=== PATIENT | female | born 1990 | race Caucasian/White ===

== ENCOUNTER 2023-02-04 09:02 | Inpatient (IN) | payer OTHER, SELFPAY ==
[2023-02-04] VITALS (33 sets, daily range): BP systolic 121–174; BP diastolic 68–97; PULSE 69–90; RESP 15; TEMP 36.8–37.3; O2SAT 98; BMI 41.2
[2023-02-04] MEDS: 0.9% Normal Saline Single 100 ML IV.SOLN. INTRA-UTER (09:50)
[2023-02-04 11:18] LABS: Red Blood Cells-Urine 0 SEEN /hpf (0-5)
[2023-02-04 11:20] LABS: Mucous, Urine 0 SEEN /hpf (<or=2+)
[2023-02-04 11:23] LABS: Absolute Lymphocyte Count 2.17 X10^3/uL (0.83-4.51); Absolute Neutrophil Count 8.5 X10^3/uL (2.0-7.7); Basophil# 0.03 X10^3/uL; Basophil% 0.3 % (0-1); Eosinophil# 0.08 X10^3/uL; Eosinophils% 0.7 % (0-5); Hematocrit 36.6 % (37-47); Lymphocyte # 2.17 X10^3/ul (0.83-4.51); Lymphocyte % 18.2 % (19-41); Mean Corp Hgb Conc 32.8 g/dL (32-36); Mean Corpuscular Hgb 29.2 pg (27.0-32.0); Mean Corpuscular Volume 89.1 fL (81-99); Mean Platelet Vol. 11.2 fl (6.2-12.0); Monocyte# 1.02 X10^3/uL; Monocyte% 8.5 % (0-10); NRBC Flagged by Analyzer 0 % (0-5); Neutrophil # 8.54 X10^3/uL (2.7-7.7); Neutrophil % 71.5 % (47-70); Platelet Count 283 K/mm3 (150-450); RBC Distribution Width CV 14.6 % (11.6-14.6); RBC Distribution Width SD 46.1 fl (35.1-43.9); Red Blood Count 4.11 M/mm3 (4.2-5.4); White Blood Count 11.9 K/mm3 (4.4-11.0)
[2023-02-04 11:32] LABS: Color, Urine Straw (Yellow); Glucose, Dipstick Normal (Normal); Ketone-Dipstick Negative (Negative); Leukocyte Esterase-Dipstick 500 /ul (Negative); Nitrite-Dipstick Negative (Negative); Occult Blood-Urine Negative /ul (Negative); Protein-Dipstick 15 mg/dl (Negative); Specific Gravity, Urine 1.005 (1.002-1.030); Urine Bilirubin Dipstick Negative (Negative); Urine Clarity Clear (Clear); Urine Urobilinogen Normal (Normal)
[2023-02-04] MEDS: 0.9% Saline Lock 10 ML Syringe IV ×2 (11:39→18:36)
[2023-02-04] MEDS: miSOPROStol 25 MCG TABLET PO ×2 (11:39→15:37)
[2023-02-04 11:40] LABS: Bacteria 2+ /hpf (None Seen); Squamous Epithelial Cells - UA 0-5 SEEN /hpf (5-10); White Blood Cells 10-25 SEEN /hpf (0-5)
[2023-02-04 11:45] LABS: Bedside Glucose 78 mg/dL (74-106)
[2023-02-04 12:24] LABS: HIV - WCH Non-Reactive (Nonreactive); Rubella IgG Reactive (Nonreactive); Syphilis Antibodies Non-reactive
[2023-02-04 12:25] LABS: Bedside Glucose 72 mg/dL (74-106)
[2023-02-04 12:30] LABS: AST(SGOT) 23 U/L (15-37); Alanine Aminotransfer ALT/SGPT 27 U/L (13-56); Creatinine, Serum 0.69 mg/dL (0.55-1.02); EST Glomerular Filtration Rate 105 mL/min (>60); Est Glom Filt Rate - Afr Amer 128 mL/min (>60); Estimated Creatinine Clearance 102.01 ml/min; Uric Acid 8.2 mg/dL (2.6-6.0)
[2023-02-04 12:32] LABS: Hepatitis B Surface Antigen Non-Reactive (Nonreactive); Hepatitis C Antibody Non-Reactive (Nonreactive)
[2023-02-04 12:40] LABS: Protein, Urine (Random) 14.2 mg/dL (<11.9); Protein:Creat Ratio 335 mg/g CRE (0-200)
[2023-02-04 12:43] LABS: Amphetamine Urine VISTA NEGATIVE (<1000 ng/mL); Barbiturate Urine VISTA NEGATIVE (< 200 ng/mL); Benzodiazepine Urine VISTA NEGATIVE (< 200 ng/mL); Cocaine Urine VISTA NEGATIVE (< 300 ng/mL); Ecstacy Urine VISTA NEGATIVE (< 500 ng/mL); Methadone Urine VISTA NEGATIVE (< 300 ng/mL); PCP Urine VISTA NEGATIVE (< 25 ng/mL); THC Urine VISTA NEGATIVE (< 50 ng/mL); Vista UDS pH Range 7
[2023-02-04 13:10] LABS: Group B Strep DNA By PCR Negative (Negative); Internal Control PASS; Probe Check PASS; Specimen Processing Control PASS
[2023-02-04 16:06] LABS: Bedside Glucose 102 mg/dL (74-106)
[2023-02-04 16:19] LABS: Chlamydia Trachomatis by PCR Negative (Negative); Neisserai gonorrhoeae by PCR Negative (Negative); Probe Check PASS; Sample Adequacy Control PASS; Specimen Processing Control PASS
--- NOTE | 2023-02-04 18:22 | PCM.HP.OB ---
HPI - General General Date of Admission: 02/04/23 HPI Narrative NARAYAN BELL, is a 32 F who presents at 37w3d by LMP . Presented to office today for first appointment, no care. Patient had a fear of getting her blood drawn so never came for care. Was taking BP at home and it was elevated so she came in. Denies REYNOLDS, visual changes, chest pain or SOB. . At visit BP in severe range and sent for induction of labor. BPP 8/8, KAREN normal. PFSH PFSH Medical History (Updated 02/04/23 @ 18:26 by Milly Stein CNM) macrosomia Home Medications [id number] 1 mg tablet 1 tab PO DAILY 02/04/23 [History Last Taken 02/04/23 06:00] Allergy/AdvReac Type Severity Reaction Status Date / Time No Known Allergies Allergy Verified 02/04/23 09:57 Surgical History (Updated 02/04/23 @ 10:55 by Nena Jalloh) History of surgery Social History Smoking Status: Never smoker History Elective abortions Hx Para 0 Spontaneous abortions Hx # Term Pregnancies Ectopic pregnancies Hx # Pregnancies Multiple births # of living children ROS Constitutional Constitutional: Reports systems reviewed and no addt'l complaints, except as documented; Denies headache(s) Eyes Eyes: Denies acute decrease in peripheral vision, blurry vision or change in vision ENT HEENT: Reports systems reviewed and no addt'l complaints, except as documented Cardiovascular Cardiovascular: Denies chest pain or dizziness Respiratory/Chest Respiratory/Chest: Denies cough, dyspnea, dyspnea on exertion, shortness of breath at rest or shortness of breath with exertion Gastrointestinal Gastrointestinal: Denies abdominal pain, diarrhea, nausea or vomiting Genitourinary Genitourinary: Denies abdominal discomfort Musculoskeletal Musculoskeletal: Denies limited range of motion Integumentary Integumentary: Reports systems reviewed and no addt'l complaints, except as documented Neurologic Neurologic: Reports systems reviewed and no addt'l complaints, except as documented Psychiatric Psychiatric: Reports systems reviewed and no addt'l complaints, except as documented Endocrine Endocrinology: Reports systems reviewed and no addt'l complaints, except as documented Hematologic/Lymphatic Hematologic/Lymphatic: Reports systems reviewed and no addt'l complaints, except as documented Allergic/Immunologic Allergic/Immunologic: Reports systems reviewed and no addt'l complaints, except as documented Vital Signs Vital Signs Vital Signs: 02/04/23 09:28 02/04/23 09:28 02/04/23 09:44 Temperature Temperature Source Pulse Rate 75 Blood Pressure 143/84 H 174/97 H BP Systolic 143 174 BP Diastolic 84 97 02/04/23 09:44 02/04/23 10:14 02/04/23 10:14 Temperature Temperature Source Pulse Rate 90 72 Blood Pressure 128/77 H BP Systolic 128 BP Diastolic 77 02/04/23 10:28 02/04/23 10:28 02/04/23 11:51 Temperature Temperature Source Pulse Rate 80 Blood Pressure 151/84 H 135/79 H BP Systolic 151 135 BP Diastolic 84 79 02/04/23 11:51 02/04/23 11:49 02/04/23 11:49 Temperature 98.6 F Temperature Source Temporal Pulse Rate 75 Blood Pressure BP Systolic BP Diastolic 02/04/23 12:13 02/04/23 12:13 02/04/23 12:28 Temperature Temperature Source Pulse Rate 81 Blood Pressure 127/75 H 128/78 H BP Systolic 127 128 BP Diastolic 75 78 02/04/23 12:28 02/04/23 12:43 02/04/23 12:43 Temperature Temperature Source Pulse Rate 78 78 Blood Pressure 136/79 H BP Systolic 136 BP Diastolic 79 02/04/23 13:53 02/04/23 13:53 02/04/23 15:31 Temperature Temperature Source Pulse Rate 75 Blood Pressure 134/79 H 132/78 H BP Systolic 134 132 BP Diastolic 79 78 02/04/23 15:31 02/04/23 15:34 02/04/23 15:34 Temperature 98.2 F Temperature Source Temporal Pulse Rate 73 Blood Pressure BP Systolic BP Diastolic Weight Weight: 240 lb 4.862 oz Body Mass Index (BMI) 41.2 Physical Exam Const alert and oriented x3 General Appearance: cooperative Orientation / Consciousness: awake, oriented to person, oriented to place and oriented to time Exam Limitations: no limitations HEENT normocephalic Head and Scalp: normal to inspection, normocephalic and atraumatic Face and Sinus: normal facial exam Eyes General Eye: normal appearance of both eyes Neck full ROM Chest Chest: symmetrical chest wall rise Resp normal respiratory effort and normal air movement Auscultation: clear to auscultation bilaterally Cardio regular rate, regular rhythm, S1 normal heart sound, S2 normal heart sound, no murmurs, no rub, no gallops and no clicks GI normal to inspection, nondistended, normoactive bowel sounds and non-tender appearance of the vagina normal Bladder / Kidney Exam: no CVA tenderness Manual OB Exam: estimated gestational size large, presentation cephalic, dilated 1cm, effaced 50%, station -3 and other herrera catheter placed intracervically without difficult over stylus. 30 ml NS instilled. Patient tolerated well. Back/Spine normal ROM Extremity normal to inspection and full ROM Skin no rashes or lesions noted Neuro oriented x3, CN's II-XII intact bilaterally and moves all extremities Sensorium / Orientation: awake, alert and oriented to person Motor Exam: clonus absent Deep Tendon Reflexes: Rt Patellar (L4): 2+ and Lt Patellar (L4): 2+ Labs Labs Labs: Blood Type B POSITIVE Antibody Screen NEGATIVE Hct 36.6 % (37-47) L Hgb 12.0 g/dL (12.0-15.0) Syphilis Total Ab Non-reactive Rubella IgG Antibody Reactive (Nonreactive) Hep Bs Antigen Non-Reactive (Nonreactive) HIV 1&2 Antibody Non-Reactive (Nonreactive) Group B Strep DNA Negative (Negative) Assessment & Plan (1) Encounter for induction of labor: (2) Preeclampsia: (3) Suspected macroscopic fetus: COMMENT: 9lb 6oz (4) No care in current : (5) Nulliparity: (6) 37 weeks gestation of : PLAN: Plan 1) Admit to labor and delivery 2) Routine labs and preeclampsia labs 3) BP not severe range upon admission, Preeclampsia without severe features. 4) Reviewed options for IOL and patient consents to herrera catheter and cytotec PO then pitocin. 5) Continuous EFM 6) Pain management upon request 7) collaborative physician and notified of patient status 8) GBS ordered
[2023-02-04] MEDS: Lactated Ringers 1,000 ML 200 ML IV (18:36)
[2023-02-04] MEDS: Oxytocin 15 Units/NS 250ml 15 UNITS/250 ML IV.SOLN 2 UNITS IV (19:04)
[2023-02-04] MEDS: Labetalol 100 MG Tablet PO (20:39)
[2023-02-04] MEDS: Magnesium Sulfate 4gm/100mL 4 GM/100 ML IV.SOLN. IV (20:40)
[2023-02-04] MEDS: Magnesium Sulfate 4gm/100mL 2 GM/50 ML IV.SOLN. IV (21:01)
[2023-02-04] MEDS: Magnesium Sulfate 20 GM/500 ML BAG IV (21:12)
[2023-02-05] VITALS (260 sets, daily range): BP systolic 84–147; BP diastolic 50–85; PULSE 56–107; RESP 13–24; TEMP 36.4–37.3; O2SAT 80–98
[2023-02-05] MEDS: LACTATED RINGERS 500 ML 999 ML IV ×2 (00:09→01:15)
[2023-02-05] MEDS: fentaNYL-bupivacaine (epidural) 100 ML BAG EPIDURAL ×4 (01:09→14:26)
[2023-02-05] MEDS: Magnesium Sulfate 20 GM/500 ML BAG IV ×2 (07:02→17:07)
[2023-02-05] MEDS: Labetalol 100 MG Tablet PO ×2 (10:22→22:38)
[2023-02-05] MEDS: Oxytocin 15 Units/NS 250ml 15 UNITS/250 ML IV.SOLN 16 UNITS IV (14:25)
[2023-02-05] MEDS: Sodium Citrate/Citric Acid 30 ML UDC PO (18:09)
[2023-02-05] MEDS: Acetaminophen 500 MG Tablet PO (18:11)
[2023-02-05] MEDS: Cefazolin 2 GM in 0.9% Normal Saline 100 ML IV (18:22)
--- NOTE | 2023-02-05 19:09 | OP.PCM_ITS ---
Assessment & Plan (1) 37 weeks gestation of : (2) Nulliparity: (3) Preeclampsia: (4) Arrest of descent, delivered, current hospitalization: Maternal Data Information Final ANTONINO: 02/12/23 Gestational age: 37 4/7 Details Operative Information Date of Procedure: 02/05/23 Pre-Operative Diagnosis: arrest of descent Post-Operative Diagnosis: same Classification: REGINE Procedure Type: low transverse player development executive #1: Modesta Diaz Type of Anesthesia: Epidural Anesthesiologist: Jose Burciaga Special Medications: duramorph Antibiotic Given: Ancef 2 grams IV x1 and Zithromax 500 mg/5 mL X1 Drain: Gatica to straight drain Estimated Blood Loss: 800 Fluids Replaced: 750 Procedure Start Time: 18:31 Procedure Stop Time: 19:00 Time of Delivery: 18:35 Findings Description of Procedure: I evaluated the patient and she was pushing adequately. Pelvis clinically adequate. Estimated weight was less than 4500 clams clinically and by ultrasound. Gatica was in place. Epidural was in place and working. Position was [place]. She was pushing to plus 2 out of 5 station. She been pushing for 3 hours and was getting tired. I discussed with the patient trial of vacuum versus section versus continued pushing. She elected for trial of vacuum. Her partner was present for the discussion. The vacuum was placed on the flexion point and suction created 550 mmHg. I pulled with 2 contractions with 1 pop-off. At that point the head restituted back to plus 2 out of 5 station. I discussed with the patient that we have not made significant progress and trial of vacuum was completed. Patient stated understanding and agreed to proceed with delivery. The patient was taken to the operating room. She was prepped and draped in the dorsal supine position with a leftward tilt. A Pfannenstiel skin incision was made approximately 2 cm above the symphysis pubis and carried through to underlying layer fascia with the scalpel. The fascia was incised incised in the midline and extended laterally with the Torres scissors. The fascia was dissected off the rectus muscles with blunt and sharp dissection. The rectus muscles were in the midline and the peritoneum was entered bluntly. The peritoneal incision was stretched and the bladder blade was placed. The uterine incision was made in a low transverse fashion with the scalpel and extended superiorly and inferiorly with blunt dissection. The amniotic membranes were ruptured bluntly and clear amniotic fluid returned. The 's head was brought to the incision in the flexed position and delivered without difficulty. The remainder of the was delivered with gentle traction and fundal pressure in the standard fashion. The mouth and nares were bulb suctio beth. The cord was clamped and cut as the infant was stimulated. Cord clamping was delayed. The was handed off to the waiting nursing staff. The placenta was delivered with fundal massage and gentle traction in the standard fashion. The uterus was exteriorized and cleared of all clots and debris. . The uterine incision was closed with #1 Vicryl in a running locked fashion. A second layer of the same suture was used in an imbricating fashion. The incision was examined and was found to be hemostatic. The uterus was placed back into the peritoneal cavity and hemostasis was again confirmed. The rectus muscles were examined and any bleeding was Bovie cauterized. The parietal peritoneum and rectus muscles were closed en bloc with an 0 Vicryl running suture. Some Leticia was placed over this layer. The rectus fascia was examined and any bleeding was Bovie cauterized and the rectus fascia was closed with #1 PDS suture in a running standard fashion. The subcutaneous tissue was examining and any bleeding was Bovie cauterized. The subcutaneous tissue was reapproximated with 3-0 Vicryl suture. The skin was closed in a subcuticular fashion . I performed the entire procedure with assistance. All sponge, lap, and needle counts were correct. The patient was taken to her room for recovery in a stable condition. Presentation: Positive for [place] Amniotic Membrane Rupture Type: Artificial Amniotic Fluid Description: Clear Placental Delivery Description: Expressed Placenta Disposition: [facility] Cord Vessel Description: 3 Vessels Cord Entanglement: None Cord Gases: ABG and VBG Infant A Gender: Female (1 minute): 8 (5 minute): 9 Delayed Cord Clamping: No Complications Complications: none
[2023-02-05] MEDS: Oxytocin 15 Units/NS 250ml 15 UNITS/250 ML IV.SOLN 83 UNITS IV (19:40)
[2023-02-05] MEDS: Lactated Ringers 1,000 ML 25 ML IV (19:48)
[2023-02-05] MEDS: Ketorolac 30 MG/ML Syringe IV (20:27)
--- NOTE | 2023-02-05 23:52 | NURSING ---
Addendum entered by Marcie Goncalves 02/05/23 23:54: RN reviewed orders, pt taken off oxygen at this time as SpO2 level 92%. Original Note: pt started on 2L O2 via nasal canula at this time
[2023-02-06] VITALS (144 sets, daily range): BP systolic 96–140; BP diastolic 51–75; PULSE 64–96; RESP 16–24; TEMP 36.4–37; O2SAT 84–100
[2023-02-06] MEDS: Acetaminophen 500 MG Tablet 1000 MG PO ×4 (00:55→17:47)
[2023-02-06] MEDS: Magnesium Sulfate 20 GM/500 ML BAG IV ×2 (02:45→12:41)
[2023-02-06] MEDS: Ketorolac 30 MG/ML Syringe IV ×3 (02:47→15:02)
[2023-02-06 05:13] LABS: Hematocrit 28.7 % (37-47); Hemoglobin 9.2 g/dL (12.0-15.0); Mean Corp Hgb Conc 32.1 g/dL (32-36); Mean Corpuscular Hgb 29.3 pg (27.0-32.0); Mean Corpuscular Volume 91.4 fL (81-99); Mean Platelet Vol. 10.8 fl (6.2-12.0); Platelet Count 225 K/mm3 (150-450); RBC Distribution Width CV 15.1 % (11.6-14.6); RBC Distribution Width SD 49.6 fl (35.1-43.9); Red Blood Count 3.14 M/mm3 (4.2-5.4); White Blood Count 19.4 K/mm3 (4.4-11.0)
--- NOTE | 2023-02-06 05:15 | NURSING ---
report given to Kim Salinas RN who is assuming care of pt at this time
[2023-02-06] MEDS: Enoxaparin 40 MG/0.4 ML Syringe SC ×2 (05:58→17:45)
[2023-02-06] MEDS: Labetalol 100 MG Tablet PO ×2 (10:27→22:08)
[2023-02-06] MEDS: Senna/Docusate Sodium 1 Tablet PO (10:28)
--- NOTE | 2023-02-06 10:30 | NURSING ---
at the bedside and pt aware she will stay til Sat. Christopher states the mag can come off at 24 hours.
--- NOTE | 2023-02-06 10:32 | PCM.PN.OB ---
Subjective Subjective Pain well controlled, average lochia. Had one episode of emesis first time up but no N/V after. Ate regular diet. No flatus. Denies REYNOLDS or visual changes. Objective Data Objective Data Vital Signs: Vital Signs Temp Pulse Resp BP Pulse Ox O2 Del Method O2 Flow Rate 97.7 F L 83 16 121/63 H 94 Room Air 2 02/06/23 10:00 02/06/23 10:11 02/06/23 10:00 02/06/23 10:04 02/06/23 10:11 02/06/23 10:00 02/06/23 02:49 Oxygen Flow Rate (L/min) 2 Oxygen Delivery Method Room Air Weight: 109 kg Body Mass Index (BMI) 41.2 Intake & Output: Intake and Output for Last 24 Hours 02/04/23 02/05/23 02/06/23 23:59 23:59 23:59 Intake Total 726.66 / 726.66 3584.89 / 3584.89 631.67 / 631.67 Output Total 300 / 300 2991 / 2991 703 / 703 Balance 426.66 / 426.66 593.89 / 593.89 -71.33 / -71.33 Lab / Micro Data Result Diagrams: 02/06/23 04:59 02/04/23 10:50 Labs: Laboratory Results - last 24 hr 02/06/23 04:59: WBC 19.4 H, RBC 3.14 L, Hgb 9.2 L, Hct 28.7 L, MCV 91.4, MCH 29.3, MCHC 32.1, RDW Std Deviation 49.6 H, RDW Coeff of Iftikhar 15.1 H, Plt Count 225, MPV 10.8 Micro: Microbiology 02/04/23 Unknown Genital vaginal Group B Streptococcus Culture - Preliminary ABG Data ABG results: ABG 02/05/23 18:49 Specimen Type Cancelled Sample Site Cancelled O2 % Cancelled Cord ABG pH Cancelled Cord ABG pCO2 Cancelled Cord ABG pO2 Cancelled Cord ABG HCO3 Cancelled Cord ABG Total CO2 Cancelled Cord ABG Base Excess Cancelled Cord ABG O2 Sat Cancelled Respiration Rate Cancelled O2 Delivery Device Cancelled Liter Flow Cancelled Minute Volume Cancelled Tidal Volume Cancelled Mean Airway Pressure Cancelled POC PEEP Cancelled Peak Inspir Pressure Cancelled POC Pressure Suppt Cancelled Pressure High Cancelled Pressure Low Cancelled Time High Cancelled Time Low Cancelled EPAP Cancelled IPAP Cancelled Crit Call To/Read Back Cancelled Blood Gas Notified Whom Cancelled Blood Gas Notified Time Cancelled Clinical Comments Cancelled Physical Exam Narrative 2+ LE edema, 1+ DTRs, one beat of clonus Const alert General Appearance: cooperative GI GI Narrative: soft, moderate distention, fundus firm, appropriately tender. Abdominal bandage clean dry and intact Assessment & Plan (1) delivery delivered: PLAN: Patient is doing well from a postop standpoint. Routine postop care for delivery. preeclampsia. Continue maintenance labetalol. DC IV magnesium at 24 hours. Discussed with the patient she would need to stay at least 3 nights for observation of her blood pressures. is breast-feeding and doing well. Mild acute blood loss anemia, appropriate for blood loss during surgery and likely somewhat delusional. Recheck CBC tomorrow.
[2023-02-06] MEDS: Lactated Ringers 1,000 ML 50 ML IV (18:22)
--- NOTE | 2023-02-06 21:19 | NURSING ---
pts last duramorph check that was due at 1836 24 hours after delivery was not completed
[2023-02-07] VITALS (14 sets, daily range): BP systolic 128–148; BP diastolic 60–76; PULSE 71–88; RESP 16–18; TEMP 36.4–37.7; O2SAT 94–98
[2023-02-07] MEDS: Acetaminophen 500 MG Tablet 1000 MG PO ×4 (01:54→21:57)
[2023-02-07] MEDS: Ibuprofen 600 MG Tablet PO ×3 (01:54→18:09)
[2023-02-07] MEDS: 0.9% Saline Lock 10 ML Syringe IV ×2 (03:26→13:31)
[2023-02-07 05:48] LABS: Hematocrit 23.3 % (37-47); Hemoglobin 7.5 g/dL (12.0-15.0); Mean Corp Hgb Conc 32.2 g/dL (32-36); Mean Corpuscular Hgb 29.8 pg (27.0-32.0); Mean Corpuscular Volume 92.5 fL (81-99); Platelet Count 237 K/mm3 (150-450); RBC Distribution Width CV 15.9 % (11.6-14.6); RBC Distribution Width SD 53.1 fl (35.1-43.9); Red Blood Count 2.52 M/mm3 (4.2-5.4)
[2023-02-07] MEDS: Enoxaparin 40 MG/0.4 ML Syringe SC ×2 (06:42→19:23)
[2023-02-07] MEDS: Labetalol 100 MG Tablet PO (09:48)
[2023-02-07] MEDS: Senna/Docusate Sodium 1 Tablet PO (09:48)
--- NOTE | 2023-02-07 12:33 | PCM.PN.OB ---
Subjective Subjective Doing well. Pain is well controlled. She denies headache, vision changes, nausea, vomiting. She feels better now the magnesium is off. Lochia is normal. She is ambulating without difficulty. She is breast-feeding without complaints. Objective Data Objective Data Vital Signs: Vital Signs Temp Pulse Resp BP Pulse Ox O2 Del Method O2 Flow Rate 97.6 F L 80 16 131/61 H 94 Room Air 2 02/07/23 07:54 02/07/23 10:42 02/07/23 07:54 02/07/23 10:42 02/07/23 07:58 02/07/23 07:54 02/06/23 02:49 Oxygen Flow Rate (L/min) 2 Oxygen Delivery Method Room Air Weight: 240 lb 4.862 oz Body Mass Index (BMI) 41.2 Intake & Output: Intake and Output for Last 24 Hours 02/05/23 02/06/23 02/07/23 23:59 23:59 23:59 Intake Total 3584.89 / 3584.89 2463.76 / 2463.76 Output Total 2991 / 2991 3428 / 3428 300 / 300 Balance 593.89 / 593.89 -964.24 / -964.24 -300 / -300 Lab / Micro Data Result Diagrams: 02/07/23 05:35 02/04/23 10:50 Labs: Laboratory Results - last 24 hr 02/07/23 05:35: WBC 16.0 H, RBC 2.52 L, Hgb 7.5 L, Hct 23.3 L, MCV 92.5, MCH 29.8, MCHC 32.2, RDW Std Deviation 53.1 H, RDW Coeff of Iftikhar 15.9 H, Plt Count 237, MPV 10.0 Micro: Microbiology 02/04/23 Unknown Genital vaginal Group B Streptococcus Culture - Final Group B Beta Streptococcus is not isolated. Physical Exam Const alert and no apparent distress General Appearance: comfortable HEENT normocephalic Extremity Extremity Narrative: 1+ pitting edema Assessment & Plan (1) delivery delivered: PLAN: Doing well post op. BP stable on Labetalol 100 mg BID. No pre e symptoms. S/p 24 hours mag. Continue to monitor BP's and discussed with pt if trending up may need to increase Labetalol. She denies any symptoms of anemia. Discussed will recheck CBC in AM and to notify us of any anemia symptoms. May need IV iron or blood transfusion tomorrow. Otherwise routine PO care. (2) 37 weeks gestation of : (3) Preeclampsia: (4) Acute blood loss anemia:
--- NOTE | 2023-02-07 18:50 | CASEMGMT ---
Social Work Assessment Labor and Delivery Unit Patient Address: [address] [facility] [address] Phone number: [phone] Date of Referral: 02/04/23 Time of Referral:? 18:44 Referred By: KRISTEN Stein Date of Intervention: 02/07/23? Time of Intervention:? 11:30 Reason for Referral: late care History obtained from: medical records, mother of baby (MOB) Household composition: MOB reports she and FOB own their home with NB, no pets nor housing concerns. Patient's parent/guardian status: MOB reports she has been with Dany SEBASTIAN, for 6 years. FOB is actively involved with MOB and NB, with no other children. MOB reports no concerns of DV, AOD or MH for FOB. Medical History: MOB reports not engaging in care due to fear of medical services. MOB reports monitoring her BP as well as taking PNV at home and come to hospital when she was concerned with BP. This is MOB?s first , NB is baby girl Arelis Pereira, born 02/05/23, apgars 8/9, weighing 3930g. MOB report NB?s quality assurance intern will be MD Das, plan is to breast feed and discussing control plan with FOB as they will either plan for more children or FOB will have vasectomy. Educational Status: MOB reports master?s degree, no learning concerns. 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 FOB is employed account developer for the [employer] and will take time off to care for MOB and NB. No financial concerns reported. Supplies: MOB reports having all the supplies needed including a car seat, bassinet in their bedroom, clothes and diapers/wipes. MOB reports NB will transition to their own room when appropriate. Childcare/Caregiver(s): MOB reports she will be home with NB until she is able to return to work at which time MOB?s mother will care for NB. ? Transportation: MOB report they have vehicles, no concerns. ?? Programs/Agencies Involved: ??no community agency involvement, MOB declined referrals Children Services/Legal Issues: None reported??? Behavioral Health Issues: ??Mental Health History:? MOB reports no MH history outside of anxiety related to medical services. MOB explained during labor she had to face all of her fears due to complications and feels this experience has helped ease her anxiety regarding medical care. MOB is not currently engaged in counseling services nor wanting referral. SW assisted MOB in completing [place] Depression Scale. MOB score is 0, indicating no symptoms for depression at this time. No AOD history and never a smoker. Family/Social Stressors:? No stressors identified. Support Systems: MOB reports she is supported by FOB, FOB?s family and MOBs parents and siblings. Depression/Shaken Baby/Safe Sleeping: SW educated MOB on depression/anxiety as well as shaken baby and safe sleep. MOB report NB will be sleeping in a basinet beside their bed but has a crib in her nursey to transition to when she is older. SW provided MOB with educational information as well as resources on the topics. MOB report understanding and voice no other needs. SW encouraged MOB to contact OB or PCP if she is concerned with symptoms. ??? ASSESSMENT:? SW met with MOB and introduced herself and role as [facility] Dehydrogenation Supervisor. MOB in agreement to speak with SW. SW utilized open and close ended questions to gather information needed for an assessment. MOB report having supplies needed, identified supports, is not engaged in community resources and denies referrals. MOB reports no MH history nor AOD history for MOB or FOB. SW educated MOB on safe sleep, shaken baby and PPD/A. JACQUELINE also provided local resources for [facility]. JACQUELINE updated RN of resources provided, no concerns. PLAN:? ?No other services requested or indicated. Amy Ng PBX OPERATOR, ALEXANDRO
[2023-02-07] MEDS: NIFEdipine 30 MG Tablet PO (21:57)
[2023-02-08] VITALS (14 sets, daily range): BP systolic 124–164; BP diastolic 59–88; PULSE 82–113; RESP 16–18; TEMP 36.3–36.9; O2SAT 97–99
[2023-02-08] MEDS: Ibuprofen 600 MG Tablet PO ×4 (00:50→19:16)
[2023-02-08] MEDS: Acetaminophen 500 MG Tablet 1000 MG PO ×3 (04:45→19:16)
[2023-02-08] MEDS: Enoxaparin 40 MG/0.4 ML Syringe SC ×2 (06:19→19:16)
[2023-02-08 06:20] LABS: Hematocrit 25.8 % (37-47); Hemoglobin 8.2 g/dL (12.0-15.0); Mean Corp Hgb Conc 31.8 g/dL (32-36); Mean Corpuscular Hgb 29.7 pg (27.0-32.0); Mean Corpuscular Volume 93.5 fL (81-99); Mean Platelet Vol. 9.9 fl (6.2-12.0); Platelet Count 310 K/mm3 (150-450); RBC Distribution Width CV 15.9 % (11.6-14.6); RBC Distribution Width SD 53.7 fl (35.1-43.9); Red Blood Count 2.76 M/mm3 (4.2-5.4); White Blood Count 14.9 K/mm3 (4.4-11.0)
--- NOTE | 2023-02-08 09:23 | PCM.PN.OB ---
Subjective Subjective Patient seen at bedside. Feeling good. Denies any pain. Denies any headache, dizziness, RUQ pain, SOB, or CP. Ambulating and voiding without assistance. Appetite increasing. with minimal support. Desires discharge home today. Objective Data Objective Data Vital Signs: Vital Signs Temp Pulse Resp BP Pulse Ox O2 Del Method O2 Flow Rate 97.3 F L 86 16 133/79 H 98 Room Air 2 02/08/23 07:46 02/08/23 07:47 02/08/23 07:46 02/08/23 07:46 02/08/23 07:47 02/08/23 07:46 02/06/23 02:49 Oxygen Flow Rate (L/min) 2 Oxygen Delivery Method Room Air Weight: 240 lb 4.862 oz Body Mass Index (BMI) 41.2 Intake & Output: Intake and Output for Last 24 Hours 02/06/23 02/07/23 02/08/23 23:59 23:59 23:59 Intake Total 2463.76 / 2463.76 Output Total 3428 / 3428 300 / 300 Balance -964.24 / -964.24 -300 / -300 Lab / Micro Data Attestation: I reviewed the patient's lab results. Result Diagrams: 02/08/23 06:05 02/04/23 10:50 Labs: Laboratory Results - last 24 hr 02/08/23 06:05: WBC 14.9 H, RBC 2.76 L, Hgb 8.2 L, Hct 25.8 L, MCV 93.5, MCH 29.7, MCHC 31.8 L, RDW Std Deviation 53.7 H, RDW Coeff of Iftikhar 15.9 H, Plt Count 310, MPV 9.9 Micro: Microbiology 02/04/23 Unknown Genital vaginal Group B Streptococcus Culture - Final Group B Beta Streptococcus is not isolated. ROS Eyes Eyes: Denies blurry vision, change in vision or spots in vision ENT HEENT: Denies dizziness or headache(s) Cardiovascular Cardiovascular: Denies abdominal pain, chest pain or dyspnea Respiratory/Chest Respiratory/Chest: Denies cough, dyspnea, shortness of breath at rest or shortness of breath with exertion Gastrointestinal Gastrointestinal: Denies abdominal pain, diarrhea or vomiting Genitourinary Genitourinary: Denies change in urinary stream, difficulty urinating or dysuria Musculoskeletal Musculoskeletal: Reports none Integumentary Integumentary: Denies rash Neurologic Neurologic: Denies dizziness, headache(s), memory loss or weakness Physical Exam Narrative Dressing is dry and intact Const alert and no apparent distress General Appearance: cooperative and comfortable Exam Limitations: no limitations HEENT normocephalic Eyes General Eye: normal appearance of both eyes Neck full ROM General: normal visual inspection Chest Chest: symmetrical chest wall rise Resp normal respiratory effort and normal air movement Effort and Inspection: symmetric chest movement Auscultation: clear to auscultation bilaterally Cardio regular rate and regular rhythm GI normal to inspection, nondistended, normoactive bowel sounds Back/Spine normal ROM Extremity full ROM and no calf tenderness General Extremity: normal exam except as noted Skin no rashes or lesions noted Neuro CN's II-XII intact bilaterally Psych mental status grossly normal Assessment & Plan (1) Acute blood loss anemia: (2) delivery delivered: (3) Preeclampsia: PLAN: Plan HGB increased today to 8.2 Labetalol discontinued last night and patient started on Procardia Xl 30 mg daily- Blood pressures stable Pain controlled with PO Tylenol and Motrin Anticipate D/C home later this afternoon with follow up in office on Friday for BP check Preeclampsia precautions reviewed Dr. Sky involved with plan of care
--- NOTE | 2023-02-08 09:29 | PCM.DC.SUM ---
Providers Date of Admission: 02/04/23 Primary Care Physician: No Primary Care Phys Reason For Visit: PRIMARY C SECTION Diagnosis Discharge Diagnosis (1) Acute blood loss anemia: Status: Acute Code(s): D62 - Acute posthemorrhagic anemia (2) delivery delivered: Status: Acute Code(s): O82 - Encounter for delivery without indication (3) Preeclampsia: Status: Acute Code(s): O14.90 - Unspecified pre-eclampsia, unspecified trimester Plan HGB increased today to 8.2- Continue PO iron Labetalol discontinued last night and patient started on Procardia Xl 30 mg daily- Pain controlled with PO Tylenol and Motrin Anticipate D/C home later this afternoon or tomorrow with follow up in office on Friday for BP check Preeclampsia precautions reviewed Dr. Sky involved with plan of care Medications at Discharge Home Medications [id number] 1 mg tablet 1 tab PO DAILY 02/04/23 acetaminophen 500 mg tablet 1,000 mg PO Q6 #0 tabs 02/08/23 ibuprofen 600 mg tablet 600 mg PO Q6H #0 tabs 02/08/23 nifedipine 30 mg tablet,extended release 24 hr 30 mg PO DAILY #30 tabs 02/08/23 polysaccharide iron complex 150 mg iron capsule (Ferrex) 150 mg PO DAILYCM #60 caps 02/08/23 sennosides 8.6 mg-docusate sodium 50 mg tablet (Stool Softener-Stimulant Laxative) 1 - 2 tab PO DAILY #0 tabs 02/08/23 Hospital Course Operations section Summary of Care Provided Hospital Course: Patient was unplanned section. Hospital course extended due to preeclampsia. Physical Exam Narrative Dressing is dry and intact Const alert and no apparent distress General Appearance: cooperative and comfortable Exam Limitations: no limitations HEENT normocephalic Eyes General Eye: normal appearance of both eyes Neck full ROM General: normal visual inspection Chest Chest: symmetrical chest wall rise Resp normal respiratory effort and normal air movement Effort and Inspection: symmetric chest movement Auscultation: clear to auscultation bilaterally Cardio regular rate and regular rhythm GI normal to inspection, nondistended, normoactive bowel sounds Back/Spine normal ROM Extremity full ROM and no calf tenderness General Extremity: normal exam except as noted Skin no rashes or lesions noted Neuro CN's II-XII intact bilaterally Psych mental status grossly normal Weight / BMI Weight Weight: 240 lb 4.862 oz Body Mass Index (BMI) 41.2 ABG / Lab / Microbiology Data Result Diagrams: 02/08/23 06:05 02/04/23 10:50 Laboratory: Laboratory Results - last 24 hr 02/08/23 06:05: WBC 14.9 H, RBC 2.76 L, Hgb 8.2 L, Hct 25.8 L, MCV 93.5, MCH 29.7, MCHC 31.8 L, RDW Std Deviation 53.7 H, RDW Coeff of Iftikhar 15.9 H, Plt Count 310, MPV 9.9 Microbiology: Microbiology 02/04/23 Unknown Genital vaginal Group B Streptococcus Culture - Final Group B Beta Streptococcus is not isolated. D/C Instructions Discharge Diet: No restrictions Discharge Activity: May Drive (2 weeks) and May Shower May resume sexual activity in: 6-8 weeks Weight Bearing Status: Weight bearing as tolerated Call your doctor if your incision/area has: Continuous Slow Oozing, Sudden Increased Bleeding, Increased Pain/ Swelling, Increased Redness, Foul Smelling Discharge and Swelling at the incision site Call your doctor if you observe: Fever of 101 or Higher, Numbness or Tingling, Using more than 1 pad per hour, Shortness of breath, Dizziness, Swelling in the ankles, Chest pain, Calf discomfort and Uncontrolled pain Suture Line Care: Avoid Pulling/Pushing Change Dressing in: leave in place till F/U When: Friday02/11/23 for Blood pressure and incision check Meaningful Use Info Meaningful Use Diagnoses (Choose all that apply): None applicable Discharge Plan Admission Admit Date/Time: 02/04/23 09:02 Primary Reason for Your Visit: Labor and Delivery Attending Provider: Jennifer Harden Primary Care Provider: Care Physician,No Primary Discharge Orders/Prescriptions Prescriptions: New acetaminophen 500 mg Tablet 1,000 mg PO Q6 Qty: 0 0RF sennosides-docusate sodium [Stool Softener-Stimulant Laxat] 8.6-50 mg Tablet 1 - 2 tab PO DAILY Qty: 0 0RF ibuprofen 600 mg Tablet 600 mg PO Q6H Qty: 0 0RF nifedipine 30 mg Tablet Extended Release 24hr 30 mg PO DAILY Qty: 30 0RF polysaccharide iron complex [Ferrex 150] 150 mg iron Capsule 150 mg PO DAILYCM Qty: 60 0RF Continued [id number] 1 mg Tablet 1 tab PO DAILY Referrals / Follow Up: Care Physician,No Primary [Primary Care Provider] - Disposition Disposition (needs filled in before D/C Order can be placed): Home, Self Care
[2023-02-08] MEDS: Senna/Docusate Sodium 1 Tablet PO (09:58)
[2023-02-08] MEDS: NIFEdipine 30 MG Tablet PO ×2 (09:58→22:17)
[2023-02-08] MEDS: Iron Polysaccharide Complex 150 MG CAPSULE PO (15:20)
[2023-02-08] MEDS: 0.9% Saline Lock 10 ML Syringe IV (19:17)
[2023-02-09] VITALS (10 sets, daily range): BP systolic 138–155; BP diastolic 77–91; PULSE 92–116; RESP 15–18; TEMP 36.3–36.9; O2SAT 98–99
[2023-02-09] MEDS: Ibuprofen 600 MG Tablet PO ×4 (00:56→19:54)
[2023-02-09] MEDS: Acetaminophen 500 MG Tablet 1000 MG PO ×4 (00:57→19:54)
[2023-02-09] MEDS: Enoxaparin 40 MG/0.4 ML Syringe SC ×2 (06:31→18:34)
[2023-02-09] MEDS: Iron Polysaccharide Complex 150 MG CAPSULE PO (08:06)
[2023-02-09] MEDS: 0.9% Saline Lock 10 ML Syringe IV (08:13)
--- NOTE | 2023-02-09 09:29 | PCM.PN.OB ---
Subjective Subjective Patient is doing well this morning. She denies headache or vision changes. Pain is well controlled. She is ambulating voiding without difficulty. Lochia is normal. She offers no complaints this morning Objective Data Objective Data Vital Signs: Vital Signs Temp Pulse Resp BP Pulse Ox O2 Del Method O2 Flow Rate 98.5 F 101 H 15 141/77 H 98 Room Air 2 02/09/23 08:15 02/09/23 08:15 02/09/23 08:15 02/09/23 08:15 02/09/23 08:15 02/09/23 08:15 02/06/23 02:49 Oxygen Flow Rate (L/min) 2 Oxygen Delivery Method Room Air Weight: 240 lb 4.862 oz Body Mass Index (BMI) 41.2 Intake & Output: Intake and Output for Last 24 Hours 02/07/23 02/08/23 02/09/23 23:59 23:59 23:59 Output Total 300 / 300 Balance -300 / -300 Lab / Micro Data Result Diagrams: 02/08/23 06:05 02/04/23 10:50 Micro: Microbiology 02/04/23 Unknown Genital vaginal Group B Streptococcus Culture - Final Group B Beta Streptococcus is not isolated. Physical Exam Const alert and no apparent distress General Appearance: comfortable GI soft to palpation, non-tender and non-distended GI Narrative: Dressing c/d/i Extremity Extremity Narrative: 1+ pitting edema bilaterally Assessment & Plan (1) Acute blood loss anemia: PLAN: Continue oral iron. She has no symptoms of anemia (2) delivery delivered: PLAN: Routine postoperative care. Pain is well controlled. Anticipate discharge to hotel status later today (3) Preeclampsia: PLAN: Blood pressures are trending up. Will increase Procardia to a total of 90 mg extended release. She is status post magnesium . She denies any preeclampsia symptoms. She has a blood pressure cuff at home and was instructed to continue to monitor her blood pressure after discharge. She has follow-up in the office in 2 days for blood pressure check
[2023-02-09] MEDS: NIFEdipine 60 MG Tablet PO (10:03)
[2023-02-09] MEDS: Senna/Docusate Sodium 1 Tablet PO (10:06)
[2023-02-09] MEDS: NIFEdipine 30 MG Tablet PO (22:18)
== END 2023-02-09 22:45 | disposition home or self-care (01) | DRG 787 ==
PROVIDERS: Advanced Practice Midwife; Obstetrics & Gynecology; Admitting Provider Obstetrics & Gynecology; Visit Provider Obstetrics & Gynecology
DX: O32.4XX0 Maternal care for high head at term, not applicable or unspecified (principal); D62 Acute posthemorrhagic anemia; O14.94 Unspecified pre-eclampsia, complicating childbirth; Z37.0 Single live birth; Z3A.37 37 weeks gestation of pregnancy; O90.81 Anemia of the puerperium
CPT/HCPCS: 59025; 59050; 80307; 81001; 82565; 82570; 82803; 82962; 84156; 84450; 84460; 84550; 85025; 85027; 86703; 86762; 86780; 86803; 86850; 86900; 86901; 87081; 87340; 87491; 87591; 87653; 99221; J7120; A4216; G0378; J2405